=== PATIENT | male | born 1970 | race African-American/Black ===

== ENCOUNTER 2017-02-26 15:05 | Emergency (ER) | payer MEDICAID ==
[~2017-02-26] VITALS: Ht 190.5 cm; Wt 92.8 kg
[2017-02-26 15:26] VITALS: BP 132/67
[2017-02-26] MEDS ORDERED: KETOROLAC 60 MG/2 ML VIAL IM ONE (16:00)
[2017-02-26 17:49] LABS: APPEARANCE,URINE CLEAR (CLEAR); BILIRUBIN,URINE NEGATIVE (NEGATIVE); BLOOD, URINE 2+ (NEGATIVE); COLOR,URINE YELLOW (YELLOW); LEUKOCYTE ESTERASE ,URINE NEGATIVE (NEGATIVE); NITRITE, URINE NEGATIVE (NEGATIVE); PH,URINE 5.5 (5.0-9.0); UGLUCOSE NEGATIVE (NEGATIVE)
[2017-02-26 18:04] LABS: RBC,URINE 0-5 (RARE) /HPF (0-5); WBC,URINE NONE SEEN /HPF (0-5)
[2017-02-26] MEDS ORDERED: cefTRIAXone 500 MG in LIDOCAINE 1% ED 1 ML IM ONE (18:25)
[2017-02-26 19:36] VITALS: BP 149/55
--- NOTE | 2017-02-26 19:36 | NUR ---
Patient discharged with v/s stable. Written and verbal after care instructions given and explained. Patient alert, oriented and verbalized understanding of instructions. Ambulatory with to car. All questions addressed prior to discharge. ID band removed. Patient advised to follow up with PMD. Rx of CIPRO 500MG BID, NORCO 5MG-325MG given. Patient educated on indication of medication including possible reaction and side effects. Opportunity to ask questions provided and answered.
== END 2017-02-26 19:36 | disposition home or self-care (01) ==
LOC: MED 15:05
DX: M17.11 Unilateral primary osteoarthritis, right knee (principal); N50.3 Cyst of epididymis; N43.3 Hydrocele, unspecified; Z88.2 Allergy status to sulfonamides
CPT/HCPCS: 73562; 76870; 81001; 96372; 99285; J0696; J1885; J2001; Q0092

== ENCOUNTER 2018-09-12 04:40 | Emergency (ER) | payer MEDICAID ==
[~2018-09-12] VITALS: Ht 190.5 cm; Wt 104.3 kg
[2018-09-12 04:45] VITALS: BP 119/79
--- NOTE | 2018-09-12 04:45 | NUR ---
PT TAKEN TO BED 11
--- NOTE | 2018-09-12 04:51 | NUR ---
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 PT DENIES ANY TRAUMA. +CMS. PERIPHERAL PULSES PRESENT. CAP REFILL<3. PT DENIES N/V/D; SKIN IS INTACT, PINK/WARM/DRY; AAOX4, PERRL, WITH EVEN AND STEADY GAIT USING CANE; LUNGS CLEAR BL, BREATHING UNLABORED; HR EVEN AND REGULAR, BL PERIPHERAL PULSES PRESENT; PT DENIES ANY FEVER, CP, SOB, OR COUGH AT THIS TIME; PT STATES 10/10 PAIN AT THIS TIME; VSS; PATIENT POSITIONED FOR COMFORT; HOB ELEVATED; BEDRAILS UP X2; BED DOWN.
--- NOTE | 2018-09-12 04:59 | NUR ---
Dr. Valdes evaluating patient at bedside.
[2018-09-12] MEDS ORDERED: KETOROLAC 60 MG/2 ML VIAL IM ONE (05:00)
--- NOTE | 2018-09-12 05:37 | NUR ---
PT TAKEN TO RAD
--- NOTE | 2018-09-12 05:47 | NUR ---
PT RETURN FROM RAD
[2018-09-12 05:56] VITALS: BP 122/75
--- NOTE | 2018-09-12 05:57 | NUR ---
Patient discharged with v/s stable. Written and verbal after care instructions given and explained. Patient alert, oriented and verbalized understanding of instructions. Ambulatory with steady gait. All questions addressed prior to discharge. ID band removed. Patient advised to follow up with PMD. Rx of ROBAXIN, MOTRIN given. Patient educated on indication of medication including possible reaction and side effects. Opportunity to ask questions provided and answered.
== END 2018-09-12 05:57 | disposition home or self-care (01) ==
LOC: MED 04:40
DX: S39.012A Strain of muscle, fascia and tendon of lower back, initial encounter (principal); Z88.2 Allergy status to sulfonamides; X58.XXXA Exposure to other specified factors, initial encounter; Y93.89 Activity, other specified; Y92.89 Other specified places as the place of occurrence of the external cause; Y99.8 Other external cause status
CPT/HCPCS: 72100; 96372; 99283; J1885

== ENCOUNTER 2019-02-04 13:42 | Emergency (ER) | payer MEDICAID ==
[~2019-02-04] VITALS: Ht 190.5 cm; Wt 108.9 kg
[2019-02-04 13:46] VITALS: BP 132/87
--- NOTE | 2019-02-04 13:49 | NUR ---
pt taken to bed 7.
--- NOTE | 2019-02-04 13:53 | NUR ---
48/M BIB C/O RT KNEE RADIATING TO RIGHT LOWER BACK PAIN X 2 DAYS. DENIES INJURY AT THIS TIME. PATIENT STATES PAIN OF 10/10 AT THIS TIME. PATIENT POSITIONED FOR COMFORT; HOB ELEVATED; BEDRAILS UP X1; BED DOWN. ER MD MADE AWARE OF PT STATUS.
[2019-02-04] MEDS ORDERED: KETOROLAC 60 MG/2 ML VIAL IM ONE (14:10)
--- NOTE | 2019-02-04 14:56 | NUR ---
Patient being evaluated by LELIA JOAQUIN at bedside.
[2019-02-04] MEDS ORDERED: HYDROcodone/APAP 5/325 MG 1 TAB TAB PO ONE (15:05)
[2019-02-04] MEDS ORDERED: DEXAMETHASONE 10 MG/ML VIAL IM ONE (16:00)
[2019-02-04 16:26] VITALS: BP 124/76
--- NOTE | 2019-02-04 16:26 | NUR ---
Patient discharged with v/s stable. Written and verbal after care instructions given and explained. Patient alert, oriented and verbalized understanding of instructions. Ambulatory with CANE. All questions addressed prior to discharge. ID band removed. Patient advised to follow up with PMD. Rx of PREDNISONE & NORCO given. Patient educated on indication of medication including possible reaction and side effects. Opportunity to ask questions provided and answered.
== END 2019-02-04 16:26 | disposition home or self-care (01) ==
LOC: MED 13:42
DX: M17.11 Unilateral primary osteoarthritis, right knee (principal); M51.36 Other intervertebral disc degeneration, lumbar region; Z98.890 Other specified postprocedural states; Z88.2 Allergy status to sulfonamides
CPT/HCPCS: 72110; 73560; 81002; 96372; 99283; J1100; J1885

== ENCOUNTER 2020-09-28 16:27 | Emergency (ER) | payer MEDICAID ==
[~2020-09-28] VITALS: Ht 190.5 cm; Wt 108.9 kg
[2020-09-28 16:35] VITALS: BP 148/98
--- NOTE | 2020-09-28 16:38 | NUR ---
Patient ambulated with steady gait to bed 1.
--- NOTE | 2020-09-28 16:48 | NUR ---
DR BOCANEGRA AT BEDSIDE EVALUATING PT
--- NOTE | 2020-09-28 16:50 | NUR ---
50 Y/O MALE PRESENTS TO ED WITH C/O SORE THROAT AND RASPY VOICE X4 WEEKS FOLLOWING CERVICAL FUSION SX 08/23/20. PT ALSO C/O CHEST PAIN AND SOB THAT STARTED THIS WEEK. PT STATES ALL SYMPTOMS HAVE WORSEN THE LAST WEEK. SURGICAL SCAR NOTED, NO SIGNS OF INFECTION BUT HAS MODERATE SWELLING. PT STATED HE WAS UNABLE TO FOLLOW UP WITH SURGEON. PT RATES CHEST PAIN 6/10 THAT HE DESCRIBES TIGHTNESS/PRESSURE AND NONRADIATING. PT RATES SORE THROAT 8/10 AND IS WORSE WITH TALKING, YAWNING, OR SNEEZING. PT WAS PRESCRIBED PERCOCET AND GABAPENTIN BUT DOES NOT WANT TO TAKE IT ROUTINELY, LAST DOSE WAS LAST WEEK. BREATH SOUNDS CLEAR BILATERAL THROUGHOUT, SPO2 100% ON RA. PT DENIES N/V/FEVER. PT A/O X4 WITH EVEN AND UNLABORED RESPIRATIONS. PT LAYING IN BED WITH BED IN LOWEST POSITION, BRAKES LOCKED, X1 SIDERAIL UP. PT IN GOWN, ON COMPUTER ENGINEER. PMH - DENIES SX: CERVICAL FUSION 09/08 AND SHOULDER SX 07/11 ALLERGIES: SULFA
--- NOTE | 2020-09-28 17:10 | NUR ---
RAD AT BEDSIDE
--- NOTE | 2020-09-28 17:14 | NUR ---
ROCIO CONTRERAS AND JAVI SAMPLES COLLECTED AND GIVEN TO HAND ETCHER HELPER
[2020-09-28 17:28] LABS: BASOPHILS % (AUTO) 0.7 % (0.0-2.0); EOSINOPHILS # (AUTO) 0.2 K/uL (0-0.4); EOSINOPHILS % (AUTO) 5.4 % (0.0-4.0); HEMATOCRIT 37.5 % (36-52); HEMOGLOBIN 12.8 g/dL (12.0-18.0); LYMPHOCYTES # (AUTO) 1.6 K/uL (2.0-11.5); LYMPHOCYTES % (AUTO) 35.1 % (20.5-51.1); MEAN CORPUSCULAR HEMOGLOBIN 29 pg (27-31); MEAN CORPUSCULAR HGB CONC 34 g/dL (33-37); MEAN CORPUSCULAR VOLUME 85.8 fL (80-94); MONOCYTES # (AUTO) 0.6 K/uL (0.8-1.0); MONOCYTES % (AUTO) 12.3 % (1.7-9.3); NEUTROPHILS # (AUTO) 2.1 K/uL (1.8-7.7); NEUTROPHILS % (AUTO) 46.5 % (42.2-75.2); PLATELET COUNT (AUTO) 173 K/uL (140-450); RED BLOOD CELL COUNT(AUTO) 4.37 MIL/uL (4.20-6.10); RED CELL DISTRIBUTION WIDTH 13.5 % (11.6-13.7); WHITE BLOOD COUNT (AUTO) 4.5 K/uL (4.8-10.8)
[2020-09-28 17:30] LABS: ANION GAP 10.2 (8-16); CARBON DIOXIDE 28.2 mmol/L (21-32); CREATININE 1.1 mg/dL (0.6-1.3); POTASSIUM 4.4 mmol/L (3.5-5.1)
--- NOTE | 2020-09-28 19:16 | NUR ---
RECEIVED REPORT FROM EUFEMIA DUFFY FOR CONTINUITY OF CARE
--- NOTE | 2020-09-28 19:16 | NUR ---
REPORT GIVEN TO CHACHO RN. TRANSFER OF CARE AT THIS TIME.
--- NOTE | 2020-09-28 19:59 | NUR ---
Reji vega in EDM - 09/28/20 at 2000 by FANNIE REPORTED CRITICAL LAB VALUE OF TROPONIN 3.882 TO [facility], SPOKE TO BRIAN.
--- NOTE | 2020-09-28 21:15 | NUR ---
Patient discharged with v/s stable. Written and verbal after care instructions given and explained. Patient verbalized understanding. Ambulatory with steady gait. All questions addressed prior to discharge. Advised to follow up with PMD.
[2020-09-28 21:19] VITALS: BP 126/86
== END 2020-09-28 21:15 | disposition home or self-care (01) ==
LOC: MED 16:27
DX: R07.89 Other chest pain (principal); Z20.822 Contact with and (suspected) exposure to COVID-19; R06.02 Shortness of breath; R49.0 Dysphonia
CPT/HCPCS: 36415; 70491; 71045; 80048; 83880; 84484; 85025; 87081; 93005; 99285

== ENCOUNTER 2020-10-20 17:25 | Emergency (ER) | payer MEDICAID, SELFPAY ==
[~2020-10-20] VITALS: Ht 190.5 cm; Wt 104.8 kg
[2020-10-20 17:29] VITALS: BP 117/72
--- NOTE | 2020-10-20 17:33 | NUR ---
PT INSTRUCTED TO WAIT OUTSIDE TO BE SEEN BY PROVIDER [phone]
== END 2020-10-20 19:00 | disposition left against medical advice (07) ==
LOC: MED 17:25
DX: R50.9 Fever, unspecified (principal); Z53.21 Procedure and treatment not carried out due to patient leaving prior to being seen by health care provider

== ENCOUNTER 2021-04-28 16:04 | Emergency (ER) | payer MEDICAID, SELFPAY ==
[~2021-04-28] VITALS: Ht 190.5 cm; Wt 109.8 kg
[2021-04-28 16:20] VITALS: BP 143/97
--- NOTE | 2021-04-28 17:10 | NUR ---
50 Y/O MALE BIB SELF. PATIENMEDS: CACHORRO PRESENTS TO ED WITH PAIN AND NUMBNESS TO HIS L OLYA FINGER, RADIATES UP TO LEFT SHOULDER AND RIGHT NECK. PT STATES HE HAD SURGERY TO NECK AND SHOULDER IN JUN/AUGUST THIS YEAR S/P TC. DENIES N/V/D; SKIN IS PINK/WARM/DRY; AAOX4 WITH EVEN AND STEADY GAIT; SPEAKS IN FULL SENTENCES AND UNLABORED BREATHING; HR EVEN AND REGULAR; PT DENIES ANY FEVER, CP, SOB, OR COUGH AT THIS TIME; PATIENT STATES PAIN OF 10/10 AT THIS TIME; VSS; PATIENT POSITIONED FOR COMFORT; HOB ELEVATED; BEDRAILS UP X1; BED DOWN; PLACED ON HEART MONITOR. ER MD MADE AWARE OF PT STATUS. PT HAS CALM DEMEANOR. HX: NECK/SHOULDER SURG S/P TC ALLERGIES TO SULFA (HIVES) MEDS: DENIES
[2021-04-28] MEDS ORDERED: IBUPROFEN 600 MG TAB ONE (18:22)
[2021-04-28] MEDS: IBUPROFEN 600 MG TAB PO ONE (18:24)
--- NOTE | 2021-04-28 18:30 | NUR ---
RADIOLOGY AT BEDSIDE
[2021-04-28] MEDS ORDERED: DICL20GE TP (19:09)
[2021-04-28 19:19] VITALS: BP 126/92
--- NOTE | 2021-04-28 19:19 | NUR ---
Patient discharged with v/s stable. Written and verbal after care instructions given and explained. Patient alert, oriented and verbalized understanding of instructions. Ambulatory with steady gait. All questions addressed prior to discharge. ID band removed. Patient advised to follow up with PMD. Rx of DICLOFENAC given. Patient educated on indication of medication including possible reaction and side effects. Opportunity to ask questions provided and answered.
--- NOTE | 2021-04-28 19:19 | NUR ---
Pt report given to ISRA FALL. Transfer of care at this time.
== END 2021-04-28 22:15 | disposition home or self-care (01) ==
LOC: MED 16:04
DX: M54.2 Cervicalgia (principal); M54.10 Radiculopathy, site unspecified; R03.0 Elevated blood-pressure reading, without diagnosis of hypertension; Z88.2 Allergy status to sulfonamides
CPT/HCPCS: 73030; 73130; 99284

== ENCOUNTER 2022-01-19 10:38 | Emergency (ER) | payer MEDICAID ==
[~2022-01-19] VITALS: Ht 190.5 cm; Wt 103.5 kg
[~2022-01-19 10:38] MED LIST: DICL20GE TP
[2022-01-19 10:48] VITALS: BP 133/75
--- NOTE | 2022-01-19 10:54 | NUR ---
PT AMBULATED TO ER BED 12
--- NOTE | 2022-01-19 11:10 | NUR ---
PT C/O LOWER BACK PAIN RADIATING DOWN BILATERAL LEGS X2 WEEKS. PT INJURY OR TRAUMA. NAD. SAFETY MAINTAINED.
--- NOTE | 2022-01-19 11:22 | NUR ---
Patient being evaluated by DR KAPOOR at bedside.
[2022-01-19] MEDS ORDERED: KETOROLAC 60 MG/2 ML VIAL IM ONE (11:30)
[2022-01-19] MEDS ORDERED: HYDROcodone/APAP 5/325 MG 1 TAB TAB PO ONE (11:30)
[2022-01-19 13:11] LABS: APPEARANCE,URINE CLEAR (CLEAR); BILIRUBIN,URINE NEGATIVE (NEGATIVE); BLOOD, URINE 2+ (NEGATIVE); COLOR,URINE YELLOW (YELLOW); LEUKOCYTE ESTERASE ,URINE NEGATIVE (NEGATIVE); NITRITE, URINE NEGATIVE (NEGATIVE); UGLUCOSE NEGATIVE (NEGATIVE)
[2022-01-19 13:38] LABS: WBC,URINE NONE SEEN /HPF (0-5)
[2022-01-19] MEDS ORDERED: NAPR-1704 PO (13:54)
[2022-01-19] MEDS ORDERED: ACET-8386 PO (13:55)
--- NOTE | 2022-01-19 14:04 | NUR ---
Patient discharged with v/s stable. Written and verbal after care instructions given and explained. Patient alert, oriented and verbalized understanding of instructions. Ambulatory with steady gait. All questions addressed prior to discharge. ID band removed. Patient advised to follow up with PMD. Rx of norco, naproxen given. Patient educated on indication of medication including possible reaction and side effects. Opportunity to ask questions provided and answered.
== END 2022-01-19 14:04 | disposition home or self-care (01) ==
LOC: MED 10:38
DX: M54.9 Dorsalgia, unspecified (principal); G89.29 Other chronic pain; Z88.2 Allergy status to sulfonamides; Z79.899 Other long term (current) drug therapy; Z98.890 Other specified postprocedural states
CPT/HCPCS: 81001; 96372; 99283; J1885; 81003

== ENCOUNTER 2023-07-11 10:44 | Emergency (ER) | payer BC, MEDICAID ==
[~2023-07-11] VITALS: Ht 190.5 cm; Wt 104.3 kg
[~2023-07-11 10:44] MED LIST changes: +ACET-8905 PO; +NAPR-1704 PO
[2023-07-11 11:05] VITALS: BP 125/82; PULSE 58; RESP 18; TEMP 98.3; O2SAT 98
[2023-07-11] MEDS: KETOROLAC 30 MG/ML VIAL IM ONE (12:52)
[2023-07-11] MEDS ORDERED: DICL100G32 TP (13:37)
[2023-07-11] MEDS ORDERED: NAPR-1704 PO (13:37)
== END 2023-07-11 13:59 | disposition home or self-care (01) ==
LOC: MED 10:44
DX: M16.0 Bilateral primary osteoarthritis of hip (principal); M19.09 Primary osteoarthritis, other specified site; Z79.899 Other long term (current) drug therapy; Z88.2 Allergy status to sulfonamides
CPT/HCPCS: 73521; 96372; 99283; J1885